=== PATIENT | female | born 1990 | race Caucasian/White ===

== ENCOUNTER 2019-05-28 05:55 | Emergency (ER) | payer OTHER ==
[2019-05-28 06:21] VITALS: BMI 20.3
--- NOTE | 2019-05-28 06:50 | PDOC ---
Post Exposure HPI - General Chief Complaint: Blood/Body Fluid Exposure SJR Stated Complaint: EXPOSURE Time Seen by Provider: 05/28/19 06:29 History Source: Patient Exam Limitations: No Limitations - History of Present Illness Initial Comments: 05/28/19 06:38 HISTORY OF PRESENT ILLNESS: A 29-year-old woman without significant medical history presents emergency department for evaluation of blood exposure to her face. Patient works as a tech in the emergency department and when collecting a blood sample that splashed in her face. Source patient was known to have negative hepatitis testing in 2017 with unknown HIV status. Source patient is low risk infection. Patient has washed her face and using eyewash. No recent travel or sick contacts. PAST MEDICAL HISTORY: Denies past medical history SURGICAL HISTORY: Denies ALLERGIES: No known drug allergies REVIEW OF SYSTEMS General/Constitutional: Denies fever or chills. Denies weakness, weight change. HEENT: Denies change in vision. Denies ear pain or discharge. Denies sore throat. Cardiovascular: Denies chest pain or shortness of breath. Respiratory: Denies cough, wheezing, or hemoptysis. Gastrointestinal: Denies nausea, vomiting, diarrhea or constipation. Denies rectal bleeding. Genitourinary: Denies dysuria, frequency, or change in urination. Musculoskeletal: Denies joint or muscle swelling or pain. Denies neck or back pain. Skin and breasts: Denies rash or easy bruising. Neurologic: Denies headache, vertigo, loss of consciousness, or loss of sensation. Psychiatric: Denies depression or anxiety. Endocrine: Denies increased thirst. Denies abnormal weight change. Hematologic/Lymphatic: Denies anemia, easy bleeding, or history of blood clots. Allergic/Immunologic: Denies hives or skin allergy. Denies latex allergy. PHYSICAL EXAM General Appearance: Well-appearing, appropriately dressed. No apparent distress , no intoxication. HEENT: EOMI, PERRLA, normal ENT inspection, normal voice, TMs normal, pharynx normal. No conjunctival pallor. No photophobia, scleral icterus. Neck: Supple. Trachea midline. No tenderness, rigidity, carotid bruit, stridor , lymphadenopathy, or thyromegaly. Respiratory/Chest: Lungs CTAB. No shortness of breath, chest tenderness, respiratory distress, accessory muscle use. No crackles, rales, rhonchi, stridor , wheezing, dullness Cardiovascular: RRR. S1, S2. No JVD, murmur, bradycardia, tachycardia. Vascular Pulses: Dorsalis-Pedis (R): 2+, Dorsalis-Pedis (L): 2+ Gastrointestinal/Abdominal: Normal bowel sounds. Abdomen soft, non-distended. No tenderness or rebound tenderness. No organomegaly, pulsatile mass, guarding, hernia, hepatomegaly, splenomegaly. Lymphatic: No adenopathy, tenderness. Musculoskeletal/Extremities: Normal inspection. FROM of all extremities, normal capillary refill. Pelvis Stable. No CVA tenderness. No tenderness to extremities, pedal edema, swelling, erythema or deformity. Integumentary: Appropriate color, dry, warm. No cyanosis, erythema, jaundice or rash Neurologic: solution lead II-XII intact. Fully oriented, alert. Appropriate mood/affect. Motor strength 5/5. No appreciable EOM palsy, facial droop or sensory deficit. 05/28/19 06:40 Timing: just prior to arrival Severity: mild Exposed Location: Bilateral: Face Assessing Significant Risk PEP: Yes Mucocutaneous, Yes Blood, No Percutaneous, No Non-intact Skin, No Visibily Bloody Fluid, No Potentially Infectious Fluid, No Source patient is potentially HIV infected, No Mucocutaneous - Other Body fluid Past History - Past Medical History Allergies/Adverse Reactions: Allergies Allergy/AdvReac Type Severity Reaction Status Date / Time latex Allergy Verified 05/28/19 06:21 Home Medications: Ambulatory Orders NK [No Known Home Medication] 05/28/19 - Suicide/Smoking/Psychosocial Hx Smoking History: Never smoked Have you smoked in the past 12 months: No Information on smoking cessation initiated: No Hx Alcohol Use: Yes (Social) Drug/Substance Use Hx: No *Physical Exam - Vital Signs Last Vital Signs Temp Pulse Resp BP Pulse Ox 98.1 F 86 20 121/80 100 05/28/19 06:12 05/28/19 06:12 05/28/19 06:12 05/28/19 06:12 05/28/19 06:12 Post Exposure - ED Protocol - Exposure Treatment Washing/Decontamination: Other (eye wash. soap and water to face.) Source Patient HIV Status:: Unknown Is PEP indicated?: No Prophylaxis for HIV discussed?: Yes Prophylaxis given?: No Baseline bloods drawn prophylaxis:(use *Exposure-Hosp Emp): Yes - Referrals Employee Referred to [facility]:: Yes Medical Decision Making - Medical Decision Making 05/28/19 06:50 A/P: 29-year-old woman for evaluation of blood splash to the face Source patient negative for hepatitis testing 2016. unknown HIV status Baseline labs collected Eyewash and facial wash performed No indication for PEP at this time Patient instructed to follow-up with occupational health services for laboratory testing and results. I discussed the physical exam findings, ancillary test results and final diagnoses with the patient. I answered all of the patient's questions. The patient was satisfied with the care received and felt comfortable with the discharge plan and treatment plan. The patient will call their primary care physician within 24 hours to arrange follow-up and will return to the Emergency Department with any new, persistent or worsening symptoms. *DC/Admit/Observation/Transfer Diagnosis at time of Disposition: Employee exposure to blood - Discharge Dispostion Disposition: HOME Condition at time of disposition: Fair Decision to Admit order: No - Referrals - Patient Instructions Printed Discharge Instructions: How to Handle Body Fluid Exposure -- Healthcare Worker Additional Instructions: Follow-up with [facility] or [facility] for further instruction and organizing retesting as directed by physician to be seen in 72 hours. for medication evaluation and Further instruction. Your Hepatitis labs will not be available until tomorrow and you may call to leave a message for call back with these results. Generally HIV and hepatitis is retested every 3, 6, and 12 months. Follow-up with [facility] or [facility] for further instruction and organizing retesting as directed by physician to be seen in 72 hours. for medication evaluation and Further instruction. Your Hepatitis labs will not be available until tomorrow and you may call to leave a message for call back with these results. Generally HIV and hepatitis is retested every 3, 6, and 12 months. - Post Discharge Activity
--- NOTE | 2019-05-28 06:57 | PDOC ---
*Physical Exam - Vital Signs Last Vital Signs Temp Pulse Resp BP Pulse Ox 98.1 F 86 20 121/80 100 05/28/19 06:12 05/28/19 06:12 05/28/19 06:12 05/28/19 06:12 05/28/19 06:12 Medical Decision Making - Medical Decision Making 05/28/19 06:57 Patient seen by the advanced practice provider under my direct supervision. Ancillary testing reviewed as necessary. I agree with plan as outlined by the advanced practice provider. *DC/Admit/Observation/Transfer Diagnosis at time of Disposition: Employee exposure to blood - Discharge Dispostion Disposition: HOME Condition at time of disposition: Fair - Referrals - Patient Instructions Printed Discharge Instructions: How to Handle Body Fluid Exposure -- Healthcare Worker Additional Instructions: Follow-up with [facility] or [facility] for further instruction and organizing retesting as directed by physician to be seen in 72 hours. for medication evaluation and Further instruction. Your Hepatitis labs will not be available until tomorrow and you may call to leave a message for call back with these results. Generally HIV and hepatitis is retested every 3, 6, and 12 months. Follow-up with [facility] or [facility] for further instruction and organizing retesting as directed by physician to be seen in 72 hours. for medication evaluation and Further instruction. Your Hepatitis labs will not be available until tomorrow and you may call to leave a message for call back with these results. Generally HIV and hepatitis is retested every 3, 6, and 12 months. - Post Discharge Activity
[2019-05-28 07:47] LABS: BLOOD UREA NITROGEN 13.8 mg/dL (7-18); CALCIUM 9.1 mg/dL (8.5-10.1); CREATININE 0.7 mg/dL (0.55-1.3); PHOSPHOROUS 4.6 mg/dL (2.5-4.9); POTASSIUM 3.7 mmol/L (3.5-5.1); TOT PROT 7.8 g/dl (6.4-8.2); URIC ACID 3.1 mg/dL (2.6-7.2)
[2019-05-28 07:49] VITALS: BP 116/76; PULSE 91; TEMP 98
[2019-05-28 08:49] LABS: BASO % 0.3 % (0-2.0); EOS % 0.6 % (0-4.5); HEMATOCRIT 35.7 % (32.4-45.2); HEMOGLOBIN 12.6 GM/dL (10.7-15.3); LYMPH % 24.9 % (8-40); MCH 29.6 pg (25.7-33.7); MCHC 35.4 g/dl (32.0-36.0); MEAN CELL VOLUME 83.6 fl (80-96); MEAN PLT VOLUME 8.7 fl (7.5-11.1); NEUT % 69.2 % (42.8-82.8); PLATELET COUNT 204 K/MM3 (134-434); RBC 4.27 M/mm3 (3.60-5.2); RDW 13.7 % (11.6-15.6); WHITE BLOOD COUNT 7.4 K/mm3 (4.0-10.0)
[2019-05-29 05:07] LABS: HEP B CORE AB, TOT Negative (Negative)
== END 2019-05-28 07:56 | disposition home or self-care (01) ==
LOC: JER 05:55
DX: Z77.21 Contact with and (suspected) exposure to potentially hazardous body fluids (principal); X58.XXXA Exposure to other specified factors, initial encounter; Y93.89 Activity, other specified; Y92.238 Other place in hospital as the place of occurrence of the external cause; Y99.0 Civilian activity done for income or pay
CPT/HCPCS: 36415; 80053; 82465; 82977; 83615; 84100; 84478; 84550; 85025; 86317; 86704; 86803; 87340; 87389; 99282-25